=== PATIENT | female | born 1950 | race Caucasian/White ===

== ENCOUNTER 2017-03-03 20:32 | Emergency (ER) | payer OTHER ==
[~2017-03-03] VITALS: Ht 162.6 cm; Wt 115.5 kg
[2017-03-03 21:02] LABS: HEMATOCRIT 35.1 % (34.6-47.8); HEMOGLOBIN 10.8 g/dL (11.7-16.4); WHITE BLOOD COUNT 13.1 x10^3/uL (3.4-10)
[2017-03-03 21:25] LABS: BLOOD UREA NITROGEN 22 mg/dL (7-18)
[2017-03-03 21:37] LABS: ASPARTATE AMINO TRANSFERASE 10 U/L (15-37)
[2017-03-03 21:42] LABS: IS PT STATUS REG ER OR PRE ER? YES
[2017-03-03 22:50] VITALS: BP 118/86
== END 2017-03-03 23:01 | disposition home or self-care (01) ==
LOC: ED 22:59
DX: R53.1 Weakness (principal); E11.9 Type 2 diabetes mellitus without complications
CPT/HCPCS: 36415; 71010; 80048; 80076; 81001; 84443; 84484; 85025; 87086; 93005; 99285

== ENCOUNTER → 2017-04-15 | Outpatient (CLI) | payer OTHER ==
[~2017-04-15] MED LIST: REGADENOSON 0.4 MG/5 ML SYRINGE ONE
== END | disposition home or self-care (01) ==
LOC: CFH 07:49
PROVIDERS: ATTEND Internal Medicine Cardiovascular Disease
DX: Z01.810 Encounter for preprocedural cardiovascular examination (principal); I35.8 Other nonrheumatic aortic valve disorders; E11.9 Type 2 diabetes mellitus without complications; I10 Essential (primary) hypertension; Z87.891 Personal history of nicotine dependence
CPT/HCPCS: 78452; 93017; 93306; A9502; J2785

== ENCOUNTER 2019-06-30 15:16 | Observation (INO) | payer MEDICARE ==
[~2019-06-30] VITALS: Ht 162.6 cm; Wt 114.4 kg
--- NOTE | 2019-06-30 15:57 | NUR ---
PT CAME IN CO OF FEELING SOB. O2 WHEN PT IS RESTING IS 93%. PT DROPS BELOW 90 WHEN SHE STARTS MOVING AROUND AND TALKING. PT HAD PNEUMONIA IN OCTOBER, COMPLETED COURSE OF ABX. IS WORRIED SHE MAY HAVE PNEUMONIA AGAIN. ACCOMPANIED BY 2 FAMIL MEMBERS. WARM BLANKET PROVIDED.
[2019-06-30] MEDS ORDERED: OMEP10CA5 PO (16:09)
[2019-06-30] MEDS ORDERED: INSU100V8 SQ (16:09)
[2019-06-30] MEDS ORDERED: ALBU90AE INH (16:09)
[2019-06-30] MEDS ORDERED: FLUT1BLS3 IH (16:09)
[2019-06-30] MEDS ORDERED: CLOP75TA52 PO (16:09)
[2019-06-30] MEDS ORDERED: ATOR-2 PO (16:09)
[2019-06-30] MEDS ORDERED: VERA40TA PO (16:09)
[2019-06-30] MEDS ORDERED: METF500T17 PO (16:09)
[2019-06-30 17:11] LABS: BASOPHILS # (AUTO) 0.07 x10^3/uL (0-0.1); BASOPHILS % (AUTO) 1 % (0-1); EOSINOPHILS # (AUTO) 0.26 x10^3/uL (0-0.4); EOSINOPHILS % (AUTO) 2 % (1-7); LYMPHOCYTES # (AUTO) 1.26 x10^3/uL (1-3.4); LYMPHOCYTES % (AUTO) 9 % (22-44); MD NO; MEAN CORPUSCULAR HEMOGLOBIN 24.8 pg (27.0-34.8); MEAN CORPUSCULAR HGB CONC 30.9 g/dL (32.4-35.8); MEAN CORPUSCULAR VOLUME 80.3 fL (80-100); MEAN PLATELET VOLUME 9.4 fL (7.4-10.4); MONOCYTES # (AUTO) 0.49 x10^3/uL (0.2-0.8); MONOCYTES % (AUTO) 4 % (2-9); NEUTROPHILS # (AUTO) 11.43 x10^3/uL (1.8-6.8); NEUTROPHILS % (AUTO) 85 % (42-75); PLATELET COUNT 282 x10^3/uL (130-400); RED BLOOD COUNT 4.86 x10^6/uL (3.82-5.3); RED CELL DISTRIBUTION WIDTH 17.7 % (9.6-15.2)
[2019-06-30 17:22] LABS: ALANINE AMINOTRANSFERASE 20 U/L (12-78); ALBUMIN 3.3 g/dL (3.4-5.0); ANION GAP 7 mmol/L (5-15); CHLORIDE 104 mmol/L (98-107); CREATININE 0.94 mg/dL (0.55-1.02)
[2019-06-30 17:27] LABS: ALKALINE PHOSPHATASE 81 U/L (45-117); BILIRUBIN,TOTAL 0.4 mg/dL (0.2-1.0); T4 (THYROXINE) 9.4 mcg/dL (4.8-13.9); TOTAL PROTEIN 7.2 g/dL (6.4-8.2); TROPONIN I < 0.015 ng/mL (0.000-0.045)
--- NOTE | 2019-06-30 17:30 | NUR ---
LUNCH RN: PT UP TO RESTROOM WITH STEADY GAIT, NO O2 ON. NO C/O DIZZINESS OR DISTRESS. UPON PT GETTING BACK TO BED PT STATES NOTED TO BE 78%. QUICKLY CAME UP WITH O2 AND DEEP BREATHING. CALL LIGHT WITHIN REACH. AWAITING RECHECK
--- NOTE | 2019-06-30 18:09 | NUR ---
REPORT RECEIVED FROM SEAN JOHNSON RN. [facility].
[2019-06-30] MEDS ORDERED: BISACODYL 10 MG SUPP PR PRN (20:00)
[2019-06-30] MEDS ORDERED: ONDANSETRON ODT 4 MG PO PRN (20:00)
[2019-06-30] MEDS ORDERED: morphine SULFATE 10 MG/ML, 1ML IVPush PRN (20:00)
[2019-06-30] MEDS ORDERED: ACETAMINOPHEN 325 MG TABLET PO PRN (20:00)
[2019-06-30] MEDS ORDERED: POLYETHYLENE GLYCOL 17 GM PACKET PO PRN (20:00)
[2019-06-30] MEDS ORDERED: MAGNESIUM SULFATE PMX 2GM/50ML 50 ML IV ONE (20:30)
[2019-06-30] MEDS ORDERED: ZOLP10TA5 PO (20:32)
[2019-06-30] MEDS ORDERED: ATORVASTATIN 80 MG TABLET PO SCH (21:00)
[2019-06-30] MEDS ORDERED: ZOLPIDEM 5MG TABLET PO SCH (22:00)
[2019-06-30 22:28] LABS: MICROSCOPIC AUTO
[2019-06-30 22:34] LABS: CULTURE INDICATED? NO
[2019-06-30] MEDS: METHOCARBAMOL 500 MG TABLET PO PRN (22:37)
[2019-06-30] MEDS: HEPARIN 5,000 UNITS/ML, 1ML SQ SCH (22:37)
[2019-06-30 22:40] VITALS: BP 129/78
[2019-06-30] MEDS: VERAPAMIL 40MG TABLET PO SCH (22:49)
[2019-06-30] MEDS: INSULIN LISPRO 100 UNITS/ML, PEN SQ-INSULIN SCH (23:08)
[2019-06-30 23:31] LABS: TROPONIN I < 0.015 ng/mL (0.000-0.045)
[2019-07-01] MEDS ORDERED: MAALOX/HYOSCYAMINE/LIDOCAINE 45 ML BTL PO ONE ×2 (00:30→14:30)
[2019-07-01 00:46] VITALS: BP 158/77
[2019-07-01 01:11] VITALS: BP 144/76
[2019-07-01 05:38] LABS: ALANINE AMINOTRANSFERASE 18 U/L (12-78); ANION GAP 7 mmol/L (5-15); CALCIUM 8.8 mg/dL (8.5-10.1); CHLORIDE 105 mmol/L (98-107); CREATININE 0.73 mg/dL (0.55-1.02)
[2019-07-01 05:42] LABS: ALKALINE PHOSPHATASE 75 U/L (45-117); BILIRUBIN,TOTAL 0.6 mg/dL (0.2-1.0); TOTAL PROTEIN 6.6 g/dL (6.4-8.2); TROPONIN I < 0.015 ng/mL (0.000-0.045)
[2019-07-01 06:22] LABS: BASOPHILS # (AUTO) 0.08 x10^3/uL (0-0.1); BASOPHILS % (AUTO) 1 % (0-1); EOSINOPHILS # (AUTO) 0.68 x10^3/uL (0-0.4); EOSINOPHILS % (AUTO) 5 % (1-7); LYMPHOCYTES # (AUTO) 1.43 x10^3/uL (1-3.4); LYMPHOCYTES % (AUTO) 12 % (22-44); MD NO; MEAN CORPUSCULAR HEMOGLOBIN 24.7 pg (27.0-34.8); MEAN CORPUSCULAR HGB CONC 31.1 g/dL (32.4-35.8); MEAN CORPUSCULAR VOLUME 79.3 fL (80-100); MEAN PLATELET VOLUME 9.8 fL (7.4-10.4); MONOCYTES # (AUTO) 0.54 x10^3/uL (0.2-0.8); MONOCYTES % (AUTO) 4 % (2-9); NEUTROPHILS # (AUTO) 9.69 x10^3/uL (1.8-6.8); NEUTROPHILS % (AUTO) 78 % (42-75); PLATELET COUNT 268 x10^3/uL (130-400); RED BLOOD COUNT 4.78 x10^6/uL (3.82-5.3); RED CELL DISTRIBUTION WIDTH 18.1 % (9.6-15.2)
[2019-07-01] MEDS: HEPARIN 5,000 UNITS/ML, 1ML SQ SCH ×2 (06:40→13:55)
[2019-07-01] MEDS: OMEPRAZOLE 10 MG CAPSULE.DR PO SCH ×2 (06:41→11:36)
[2019-07-01] MEDS: INSULIN LISPRO 100 UNITS/ML, PEN SQ-INSULIN SCH ×3 (07:47→17:28)
[2019-07-01 08:06] VITALS: BP 125/74
[2019-07-01] MEDS ORDERED: CLOPIDOGREL 75 MG TABLET PO SCH (09:00)
[2019-07-01] MEDS ORDERED: SENNA/DOCUSATE TABLET PO SCH (09:00)
[2019-07-01] MEDS ORDERED: ALBUTEROL SULFATE 90 MCG INH SCH (09:00)
[2019-07-01] MEDS ORDERED: TRELEGY ELLIPTA INH SCH (09:00)
[2019-07-01] MEDS ORDERED: REGADENOSON 0.4 MG/5 ML SYRINGE ONE (09:40)
[2019-07-01] MEDS: VERAPAMIL 40MG TABLET PO SCH (11:35)
[2019-07-01] MEDS ORDERED: MONT10TA6 PO (12:05)
[2019-07-01] MEDS: METHOCARBAMOL 500 MG TABLET PO PRN (12:06)
[2019-07-01 13:36] VITALS: BP 122/72
[2019-07-01] MEDS: SUCRALFATE 1 GM TABLET PO SCH ×2 (13:54→17:17)
[2019-07-01] MEDS ORDERED: METH500T7 PO (16:14)
[2019-07-01] MEDS ORDERED: SUCR1TAB33 PO (16:14)
[2019-07-01] MEDS ORDERED: MONTELUKAST 10 MG TABLET PO SCH (21:00)
== END 2019-07-01 18:02 | disposition home or self-care (01) ==
LOC: ED 17:09 → EDIP 18:53 → INTOOBSV 18:53 → 5SO 20:10
PROVIDERS: ADMIT Family Medicine; ATTEND Family Medicine
DX: R07.89 Other chest pain (principal); R65.10 Systemic inflammatory response syndrome (SIRS) of non-infectious origin without acute organ dysfunction; K21.9 Gastro-esophageal reflux disease without esophagitis; J45.909 Unspecified asthma, uncomplicated; D72.829 Elevated white blood cell count, unspecified; E83.42 Hypomagnesemia; F32.9 Major depressive disorder, single episode, unspecified; I25.10 Atherosclerotic heart disease of native coronary artery without angina pectoris; E11.9 Type 2 diabetes mellitus without complications; I10 Essential (primary) hypertension; E78.5 Hyperlipidemia, unspecified; E66.9 Obesity, unspecified; Z95.5 Presence of coronary angioplasty implant and graft; Z79.4 Long term (current) use of insulin; Z88.2 Allergy status to sulfonamides
CPT/HCPCS: 0399T; 36415; 71045; 78452; 80053; 81001; 82962; 83036; 83605; 83735; 83880; 84436; 84443; 84484; 85025; 93005; 93017; 93306; 96365; 96366; 96372; 99285; A9502; G0378; J1644; J1815; J2785; J3475